=== PATIENT | female | born 1960 | race Caucasian/White ===

== ENCOUNTER 2020-03-11 05:40 | Day surgery (SDC) | payer OTHER ==
[~2020-03-11 05:40] MED LIST: PROTONIX40 M1 PO; SIMVASTATIN10 MG PO
[2020-03-11] MEDS ORDERED: IBU600 MG PO (09:00)
== END 2020-03-11 13:30 | disposition home or self-care (01) ==
LOC: CIR.AMB 05:40 → ADM 07:30 → CIR.AMB 13:30
PROVIDERS: ATTEND Obstetrics & Gynecology Gynecology
DX: N84.0 Polyp of corpus uteri (principal)

== ENCOUNTER 2022-02-05 05:15 | Day surgery (SDC) | payer OTHER ==
[~2022-02-05] VITALS: Ht 157.5 cm; Wt 60.8 kg
[~2022-02-05 05:15] MED LIST changes: +CALCIUM 600+D1 EAC1 PO; +IBU600 MG PO; +MULTIPLE VITAM1 EAC2 PO; +OMEGA-31000 MG PO; +VITAMIN C500 M6 PO; +ZIPSOR25 MG PO
== END 2022-02-05 14:00 | disposition home or self-care (01) ==
LOC: CIR.AMB 05:15
PROVIDERS: ATTEND Obstetrics & Gynecology Gynecologic Oncology
DX: N85.01 Benign endometrial hyperplasia (principal); Z20.822 Contact with and (suspected) exposure to COVID-19; Z91.013 Allergy to seafood; Z88.2 Allergy status to sulfonamides; G43.909 Migraine, unspecified, not intractable, without status migrainosus; K21.9 Gastro-esophageal reflux disease without esophagitis